=== PATIENT | male | born 1945 | race Caucasian/White ===

== ENCOUNTER 2018-07-29 08:13 | Emergency (ER) | payer MEDICARE, OTHER ==
[~2018-07-29] VITALS: Ht 185.4 cm; Wt 92.4 kg
[2018-07-29] MEDS ORDERED: FINA5TAB4 PO (08:33)
[2018-07-29] MEDS ORDERED: LOVA10TA PO (08:33)
[2018-07-29] MEDS ORDERED: TAMS-11 PO (08:33)
[2018-07-29] MEDS ORDERED: AMLO10TA8 PO (08:33)
--- NOTE | 2018-07-29 08:53 | NUR ---
ULTRASOUND DELAY-LABS/XRAY.
--- NOTE | 2018-07-29 08:57 | NUR ---
pt upright on gurney awake & comfortable, responds approp to staff, NAD, comfort measures provided, call light within reach.
[2018-07-29 09:16] LABS: BASOPHILS # (AUTO) 0.01 x10^3/uL (0-0.1); BASOPHILS % (AUTO) 0 % (0-1); EOSINOPHILS % (AUTO) 0 % (1-7); LYMPHOCYTES # (AUTO) 0.74 x10^3/uL (1-3.4); LYMPHOCYTES % (AUTO) 7 % (22-44); MD NO; MEAN CORPUSCULAR HEMOGLOBIN 31.2 pg (27.5-34.5); MEAN CORPUSCULAR HGB CONC 33.4 g/dL (33.2-36.2); MEAN CORPUSCULAR VOLUME 93.4 fL (81-97); MEAN PLATELET VOLUME 8.7 fL (7.4-10.4); MONOCYTES # (AUTO) 1.17 x10^3/uL (0.2-0.8); MONOCYTES % (AUTO) 10 % (2-9); NEUTROPHILS % (AUTO) 83 % (42-75); PLATELET COUNT 139 x10^3/uL (130-400); RED BLOOD COUNT 4.74 x10^6/uL (4.38-5.82)
[2018-07-29 09:19] LABS: ALBUMIN 3.2 g/dL (3.4-5.0); ANION GAP 7 mmol/L (5-15); CALCIUM 9.4 mg/dL (8.5-10.1); CHLORIDE 107 mmol/L (98-107); CREATININE 1.16 mg/dL (0.7-1.3)
--- NOTE | 2018-07-29 09:57 | NUR ---
pt remains upright on gurney awake & comfortable, responds approp to staff, NAD, comfort measures provided, call light within reach.
[2018-07-29] MEDS ORDERED: OMNIPAQUE 350 MG/ML, 150 ML BOTTLE ONE (10:59)
--- NOTE | 2018-07-29 11:08 | NUR ---
pt upright on gurney awake & comfortable, responds approp to staff, NAD, comfort measures provided, call light within reach.
[2018-07-29] MEDS ORDERED: LIDOCAINE-MPF 1%, 5ML ONE (11:18)
[2018-07-29] MEDS ORDERED: LIDOCAINE-MPF 1%, 5ML INFIL ONE (11:30)
[2018-07-29 12:02] VITALS: BP 124/49
--- NOTE | 2018-07-29 12:02 | NUR ---
pt remains upright on gurney awake & comfortable, responds approp to staff, NAD, comfort measures provided, call light within reach.
--- NOTE | 2018-07-29 12:53 | NUR ---
Patient given discharge instructions and Rx, they have confirmed that they understand the instructions. Patient ambulatory with steady gait.
== END 2018-07-29 12:54 | disposition home or self-care (01) ==
LOC: ED 10:12
DX: L02.416 Cutaneous abscess of left lower limb (principal); E78.00 Pure hypercholesterolemia, unspecified; I10 Essential (primary) hypertension; N40.0 Benign prostatic hyperplasia without lower urinary tract symptoms; M79.605 Pain in left leg
CPT/HCPCS: 10060; 36415; 73590; 73701; 80048; 82040; 85025; 93971; 99284; Q9967

== ENCOUNTER 2018-08-08 08:42 | Inpatient (IN) | payer MEDICARE, OTHER ==
[~2018-08-08] VITALS: Ht 185.4 cm; Wt 100.9 kg
[~2018-08-08 08:42] MED LIST: AMLO10TA8 PO; FINA5TAB4 PO; LOVA10TA PO; TAMS-11 PO
--- NOTE | 2018-08-08 09:15 | NUR ---
BUSINESS INTELLIGENCE REPORTING ANALYST: PT TO ED ROOM 16 FROM LOBBY AT THIS TIME IN NAD
--- NOTE | 2018-08-08 09:53 | NUR ---
YELLOW SLIP SENT TO PHARMACY FOR RX.
[2018-08-08] MEDS ORDERED: ERTAPENEM 1 GM in SODIUM CHLORIDE 0.9% 50 ML IV SCH (10:00)
[2018-08-08] MEDS ORDERED: SODIUM CHLORIDE FLUSH 10ML SYR IVF ONE (10:00)
--- NOTE | 2018-08-08 10:00 | NUR ---
PT REMAINS IN XR.
--- NOTE | 2018-08-08 10:14 | NUR ---
PT TO ROOM 16 FROM XR. PT STATES HE WAS SEEN HERE 10 DAYS AGO FOR CELLULITIS AND WAS GIVEN ANTX RX. PER PT AND WOUND TO LLE IS WORSENED. PT DENIES FEVERS/CHILLS. PT DENIES HX DM. PT RESTING ON GURNEY. NADN. MONITORS APPLIED. WARM BLANKET PROVIDED.
--- NOTE | 2018-08-08 10:30 | NUR ---
PER ERP DR. KAUFMAN HOLD OFF ON IV ANTX FOR NOW. BC X2 HAVE BEEN DRAWN.
--- NOTE | 2018-08-08 10:39 | NUR ---
PT RESTING ON GURNEY. NADN. HERNANDES.
[2018-08-08 10:46] LABS: BASOPHILS # (AUTO) 0.02 x10^3/uL (0-0.1); BASOPHILS % (AUTO) 0 % (0-1); EOSINOPHILS # (AUTO) 0.02 x10^3/uL (0-0.4); EOSINOPHILS % (AUTO) 0 % (1-7); LYMPHOCYTES # (AUTO) 0.76 x10^3/uL (1-3.4); LYMPHOCYTES % (AUTO) 9 % (22-44); MD NO; MEAN CORPUSCULAR HEMOGLOBIN 30.6 pg (27.5-34.5); MEAN CORPUSCULAR HGB CONC 32.6 g/dL (33.2-36.2); MEAN CORPUSCULAR VOLUME 93.9 fL (81-97); MEAN PLATELET VOLUME 7.8 fL (7.4-10.4); MONOCYTES # (AUTO) 0.58 x10^3/uL (0.2-0.8); MONOCYTES % (AUTO) 7 % (2-9); NEUTROPHILS # (AUTO) 7.22 x10^3/uL (1.8-6.8); NEUTROPHILS % (AUTO) 84 % (42-75); PLATELET COUNT 314 x10^3/uL (130-400); RED CELL DISTRIBUTION WIDTH 14.4 % (9.4-14.8)
[2018-08-08 10:50] LABS: ALBUMIN 2.7 g/dL (3.4-5.0); ANION GAP 6 mmol/L (5-15); CHLORIDE 111 mmol/L (98-107); CREATININE 1.31 mg/dL (0.7-1.3)
[2018-08-08] MEDS ORDERED: LIDOCAINE-MPF 1%, 5ML ONE (11:44)
--- NOTE | 2018-08-08 11:53 | NUR ---
PT RESTING ON GURNEY. NADN. HERNANDES.
--- NOTE | 2018-08-08 11:55 | NUR ---
PER ERP DR. MANDEEP ALMANZAR TO INITIATE IV ANTX.
--- NOTE | 2018-08-08 11:59 | NUR ---
PT RESTING ON MONIQUE. VSS. PT TAKEN TO MRI IN STABLE CONDITION.
[2018-08-08] MEDS ORDERED: LIDOCAINE-MPF 1%, 5ML INFIL ONE (12:00)
[2018-08-08] MEDS ORDERED: GADOBUTROL 10 MMOL/10 ML PFS ONE (12:44)
--- NOTE | 2018-08-08 12:46 | NUR ---
REPORT GIVEN TO MARIANNE CULVER RN. ALL QUESTIONS ANSWERED. MRI TO TAKE PT UP TO FLOOR. AT BEDSIDE NOTIFIED AND UP TO FLOOR W/ PT BELONGINGS.
[2018-08-08 15:26] VITALS: BP 148/67
[2018-08-08] MEDS ORDERED: POLYETHYLENE GLYCOL 17 GM PACKET PO PRN (15:30)
[2018-08-08] MEDS ORDERED: LABETALOL 5 MG/ML SYRINGE IVPush PRN (15:30)
[2018-08-08] MEDS ORDERED: ONDANSETRON ODT 4 MG PO PRN (15:30)
[2018-08-08] MEDS ORDERED: ONDANSETRON 2MG/ML, 2ML IVPush PRN (15:30)
[2018-08-08] MEDS ORDERED: PHARMACOKINETIC MONITORING MC PRN (15:30)
[2018-08-08] MEDS ORDERED: PHARMACOKINETIC CONSULTATION MC ONE (15:30)
[2018-08-08] MEDS ORDERED: VANCOMYCIN PER PHARMACY MC PRN (15:30)
[2018-08-08 15:35] LABS: FREE T4 (FREE THYROXINE) 1.07 ng/dL (0.76-1.46)
[2018-08-08] MEDS: D5%-0.45% NACL 1,000 ML IV SCH (16:39)
[2018-08-08] MEDS ORDERED: LABETALOL 5MG/ML, 20ML IV PRN (17:00)
[2018-08-08] MEDS ORDERED: OXYcodone 5 MG/5 ML ORAL.SOL UDC PO PRN (17:00)
[2018-08-08] MEDS ORDERED: PROCHLORPERAZINE 5 MG/ML, 2ML IV PRN (17:00)
[2018-08-08] MEDS ORDERED: METOPROLOL 1 MG/ML, 5ML IV PRN (17:00)
[2018-08-08] MEDS ORDERED: MEPERIDINE/PF 25MG/0.5ML IVPush PRN (17:00)
[2018-08-08] MEDS ORDERED: hydrALAzine 20 MG/ML, 1ML IV PRN (17:00)
[2018-08-08] MEDS ORDERED: PROMETHAZINE 25 MG/ML, 1ML IV PRN (17:00)
[2018-08-08] MEDS ORDERED: DIPHENHYDRAMINE 50 MG/ML, 1ML IVPush PRN (17:00)
[2018-08-08] MEDS ORDERED: HALOPERIDOL 5 MG/ML IV PRN (17:00)
[2018-08-08] MEDS ORDERED: HYDROmorphone 2 MG/ML, 1ML IVPush PRN (17:00)
[2018-08-08] MEDS ORDERED: MIDAZOLAM 1 MG/ML, 2ML ONE (17:15)
[2018-08-08] MEDS ORDERED: FENTANYL PF 250 MCG/5ML ONE (17:15)
[2018-08-08] MEDS ORDERED: KETOROLAC 30 MG/1 ML ONE (17:24)
[2018-08-08] MEDS ORDERED: ROCURONIUM 10MG/ML,5ML ONE (18:05)
[2018-08-08] MEDS ORDERED: NEOSTIGMINE 1 MG/ML, 10ML ONE (18:05)
[2018-08-08] MEDS ORDERED: DEXAMETHASONE 4 MG/ML, 1ML ONE (18:05)
[2018-08-08] MEDS ORDERED: GLYCOPYRROLATE 0.2MG/1ML, 5ML ONE (18:05)
[2018-08-08] MEDS ORDERED: ONDANSETRON 2MG/ML, 2ML ONE (18:05)
[2018-08-08] MEDS ORDERED: SUCCINYLCHOLINE 20 MG/ML, 10ML ONE (18:05)
[2018-08-08] MEDS ORDERED: CEFAZOLIN 1,000 MG ONE (18:05)
[2018-08-08] MEDS ORDERED: PROPOFOL 10 MG/ML, 20ML ONE (18:05)
[2018-08-08] MEDS ORDERED: FENTANYL PF 100 MCG/2ML ONE (18:20)
[2018-08-08] MEDS ORDERED: OXYcodone 5 MG/5 ML ORAL.SOL UDC ONE (18:20)
[2018-08-08] MEDS: FENTANYL PF 100 MCG/2ML IV PRN ×2 (18:24→18:33)
[2018-08-08] MEDS: AMPICILLIN/SULBACTAM 3 GM in SODIUM CHLORIDE 0.9% 100 ML IV SCH (18:54)
[2018-08-08 19:02] VITALS: BP 135/67
[2018-08-08 20:05] VITALS: BP 126/69
[2018-08-08] MEDS ORDERED: AMLODIPINE 5 MG TABLET PO SCH (21:00)
[2018-08-08] MEDS: CLINDAMYCIN PMX 900MG/50ML 50 ML IV SCH (21:03)
[2018-08-08] MEDS: LOVASTATIN 10 MG TABLET PO SCH (21:04)
[2018-08-08] MEDS: FINASTERIDE 5 MG TABLET PO SCH (21:04)
[2018-08-08] MEDS: TAMSULOSIN 0.4 MG CAP.ER.24H PO SCH (21:04)
[2018-08-08] MEDS: VANCOMYCIN 1,800 MG in SODIUM CHLORIDE 0.9% 250 ML IV SCH (22:16)
[2018-08-08] MEDS: SODIUM CHLORIDE FLUSH 10ML SYR IVF SCH (22:17)
[2018-08-08] MEDS: OXYcodone IR 5MG TABLET PO PRN (23:56)
[2018-08-09] MEDS: AMPICILLIN/SULBACTAM 3 GM in SODIUM CHLORIDE 0.9% 100 ML IV SCH ×2 (01:27→07:36)
[2018-08-09 02:30] VITALS: BP 107/59
[2018-08-09] MEDS: D5%-0.45% NACL 1,000 ML IV SCH ×4 (03:59→21:59)
[2018-08-09] MEDS: CLINDAMYCIN PMX 900MG/50ML 50 ML IV SCH (05:00)
[2018-08-09] MEDS: OXYcodone IR 5MG TABLET PO PRN (05:00)
[2018-08-09 06:00] LABS: BASOPHILS % (AUTO) 0 % (0-1); EOSINOPHILS # (AUTO) 0.06 x10^3/uL (0-0.4); EOSINOPHILS % (AUTO) 1 % (1-7); LYMPHOCYTES # (AUTO) 0.51 x10^3/uL (1-3.4); LYMPHOCYTES % (AUTO) 7 % (22-44); MD NO; MEAN CORPUSCULAR HEMOGLOBIN 31.7 pg (27.5-34.5); MEAN CORPUSCULAR HGB CONC 33.6 g/dL (33.2-36.2); MEAN CORPUSCULAR VOLUME 94.4 fL (81-97); MEAN PLATELET VOLUME 7.8 fL (7.4-10.4); MONOCYTES # (AUTO) 0.14 x10^3/uL (0.2-0.8); MONOCYTES % (AUTO) 2 % (2-9); NEUTROPHILS # (AUTO) 6.25 x10^3/uL (1.8-6.8); NEUTROPHILS % (AUTO) 90 % (42-75); PLATELET COUNT 289 x10^3/uL (130-400); RED BLOOD COUNT 3.78 x10^6/uL (4.38-5.82); RED CELL DISTRIBUTION WIDTH 14.9 % (9.4-14.8)
[2018-08-09 06:12] LABS: ALBUMIN 2.3 g/dL (3.4-5.0); ANION GAP 7 mmol/L (5-15); CALCIUM 8.7 mg/dL (8.5-10.1); CHLORIDE 112 mmol/L (98-107)
[2018-08-09 06:25] LABS: ALANINE AMINOTRANSFERASE 21 U/L (12-78); ALKALINE PHOSPHATASE 53 U/L (45-117); BILIRUBIN,TOTAL 0.2 mg/dL (0.2-1.0); CREATININE 1.53 mg/dL (0.7-1.3); TOTAL PROTEIN 6.5 g/dL (6.4-8.2)
[2018-08-09 06:43] VITALS: BP 105/57
[2018-08-09] MEDS ORDERED: LOVASTATIN 10 MG TABLET PO SCH (09:00)
[2018-08-09] MEDS: SENNA/DOCUSATE TABLET PO SCH (09:00)
[2018-08-09] MEDS ORDERED: FINASTERIDE 5 MG TABLET PO SCH (09:00)
[2018-08-09] MEDS: SODIUM CHLORIDE FLUSH 10ML SYR IVF SCH ×2 (09:48→20:20)
[2018-08-09] MEDS: TAMSULOSIN 0.4 MG CAP.ER.24H PO SCH ×2 (09:48→20:20)
[2018-08-09 10:51] LABS: HCT (SEDRATE) 35.7 % (39.2-51.8)
[2018-08-09 12:59] VITALS: BP 125/69
[2018-08-09 20:17] VITALS: BP 117/64
[2018-08-09] MEDS: FINASTERIDE 5 MG TABLET PO SCH (20:20)
[2018-08-09] MEDS: LOVASTATIN 10 MG TABLET PO SCH (20:20)
[2018-08-09] MEDS: AMLODIPINE 10 MG TAB PO SCH (20:20)
[2018-08-09] MEDS: VANCOMYCIN 1,800 MG in SODIUM CHLORIDE 0.9% 250 ML IV SCH (21:59)
[2018-08-10 01:22] VITALS: BP 128/70
[2018-08-10 06:38] VITALS: BP 125/63
[2018-08-10] MEDS: D5%-0.45% NACL 1,000 ML IV SCH (07:57)
[2018-08-10] MEDS: TAMSULOSIN 0.4 MG CAP.ER.24H PO SCH ×2 (07:57→19:47)
[2018-08-10] MEDS: SENNA/DOCUSATE TABLET PO SCH (07:58)
[2018-08-10] MEDS: SODIUM CHLORIDE FLUSH 10ML SYR IVF SCH ×2 (07:58→19:48)
[2018-08-10] MEDS ORDERED: MORPHINE SULFATE 4 MG/ML, 1ML IVPush PRN (09:00)
[2018-08-10] MEDS ORDERED: morphine SULFATE 10 MG/ML, 1ML IVPush PRN (09:30)
[2018-08-10] MEDS: SODIUM CHLORIDE 0.45% 1,000 ML IV SCH ×2 (09:37→21:31)
[2018-08-10 10:24] LABS: BASOPHILS # (AUTO) 0.02 x10^3/uL (0-0.1); BASOPHILS % (AUTO) 0 % (0-1); EOSINOPHILS # (AUTO) 0.05 x10^3/uL (0-0.4); EOSINOPHILS % (AUTO) 1 % (1-7); LYMPHOCYTES % (AUTO) 24 % (22-44); MD NO; MEAN CORPUSCULAR HEMOGLOBIN 30.9 pg (27.5-34.5); MEAN CORPUSCULAR HGB CONC 32.7 g/dL (33.2-36.2); MEAN CORPUSCULAR VOLUME 94.4 fL (81-97); MEAN PLATELET VOLUME 7.5 fL (7.4-10.4); MONOCYTES # (AUTO) 0.47 x10^3/uL (0.2-0.8); MONOCYTES % (AUTO) 8 % (2-9); NEUTROPHILS % (AUTO) 67 % (42-75); PLATELET COUNT 334 x10^3/uL (130-400); RED BLOOD COUNT 3.53 x10^6/uL (4.38-5.82); RED CELL DISTRIBUTION WIDTH 14.5 % (9.4-14.8)
[2018-08-10] MEDS ORDERED: morphine SULFATE 10 MG/ML, 1ML IVPush ONE (10:30)
[2018-08-10 10:37] LABS: ALBUMIN 2.2 g/dL (3.4-5.0); ANION GAP 6 mmol/L (5-15); CALCIUM 8.4 mg/dL (8.5-10.1); CHLORIDE 114 mmol/L (98-107); CREATININE 1.14 mg/dL (0.7-1.3)
[2018-08-10 12:12] LABS: CREATININE,URINE RANDOM 84.7 mg/dL
[2018-08-10] MEDS: CEFAZOLIN 2,000 MG in SODIUM CHLORIDE 0.9% 50 ML IV SCH ×2 (12:21→19:47)
[2018-08-10] MEDS: HEPARIN 5,000 UNITS/ML, 1ML SQ SCH ×2 (13:05→19:50)
[2018-08-10 14:00] VITALS: BP 121/57
[2018-08-10 19:33] VITALS: BP 131/65
[2018-08-10] MEDS: LOVASTATIN 10 MG TABLET PO SCH (19:48)
[2018-08-10] MEDS: AMLODIPINE 10 MG TAB PO SCH (19:48)
[2018-08-10] MEDS: FINASTERIDE 5 MG TABLET PO SCH (19:48)
[2018-08-11 00:21] VITALS: BP 132/70
[2018-08-11] MEDS: CEFAZOLIN 2,000 MG in SODIUM CHLORIDE 0.9% 50 ML IV SCH ×3 (04:10→20:37)
[2018-08-11] MEDS: HEPARIN 5,000 UNITS/ML, 1ML SQ SCH ×3 (04:57→20:36)
[2018-08-11 05:50] LABS: BASOPHILS # (AUTO) 0.04 x10^3/uL (0-0.1); BASOPHILS % (AUTO) 1 % (0-1); EOSINOPHILS # (AUTO) 0.14 x10^3/uL (0-0.4); EOSINOPHILS % (AUTO) 3 % (1-7); LYMPHOCYTES # (AUTO) 1.45 x10^3/uL (1-3.4); LYMPHOCYTES % (AUTO) 27 % (22-44); MD NO; MEAN CORPUSCULAR HEMOGLOBIN 30.7 pg (27.5-34.5); MEAN CORPUSCULAR HGB CONC 32.7 g/dL (33.2-36.2); MEAN CORPUSCULAR VOLUME 93.9 fL (81-97); MEAN PLATELET VOLUME 7.4 fL (7.4-10.4); MONOCYTES # (AUTO) 0.46 x10^3/uL (0.2-0.8); MONOCYTES % (AUTO) 9 % (2-9); NEUTROPHILS % (AUTO) 61 % (42-75); PLATELET COUNT 345 x10^3/uL (130-400); RED BLOOD COUNT 3.57 x10^6/uL (4.38-5.82); RED CELL DISTRIBUTION WIDTH 14.9 % (9.4-14.8)
[2018-08-11 06:03] LABS: ANION GAP 4 mmol/L (5-15); CALCIUM 8.4 mg/dL (8.5-10.1); CHLORIDE 115 mmol/L (98-107)
[2018-08-11 06:07] LABS: ALANINE AMINOTRANSFERASE 19 U/L (12-78); ALKALINE PHOSPHATASE 47 U/L (45-117); BILIRUBIN,TOTAL 0.4 mg/dL (0.2-1.0); CREATININE 1.09 mg/dL (0.7-1.3); TOTAL PROTEIN 5.2 g/dL (6.4-8.2)
[2018-08-11 06:52] VITALS: BP 147/72
[2018-08-11] MEDS: SODIUM CHLORIDE FLUSH 10ML SYR IVF SCH ×2 (09:00→20:43)
[2018-08-11] MEDS: SENNA/DOCUSATE TABLET PO SCH (09:00)
[2018-08-11] MEDS: TAMSULOSIN 0.4 MG CAP.ER.24H PO SCH ×2 (09:49→20:34)
[2018-08-11] MEDS: SODIUM CHLORIDE 0.45% 1,000 ML IV SCH (12:08)
[2018-08-11 14:03] VITALS: BP 138/64
[2018-08-11 18:55] VITALS: BP 142/65
[2018-08-11] MEDS: AMLODIPINE 10 MG TAB PO SCH (20:34)
[2018-08-11] MEDS: LOVASTATIN 10 MG TABLET PO SCH (20:34)
[2018-08-11] MEDS: FINASTERIDE 5 MG TABLET PO SCH (20:35)
[2018-08-12 01:12] VITALS: BP 150/73
[2018-08-12] MEDS: SODIUM CHLORIDE 0.45% 1,000 ML IV SCH ×2 (01:15→14:50)
[2018-08-12] MEDS: CEFAZOLIN 2,000 MG in SODIUM CHLORIDE 0.9% 50 ML IV SCH ×2 (05:11→12:30)
[2018-08-12] MEDS: HEPARIN 5,000 UNITS/ML, 1ML SQ SCH ×2 (05:11→12:30)
[2018-08-12 05:49] LABS: BASOPHILS # (AUTO) 0.05 x10^3/uL (0-0.1); BASOPHILS % (AUTO) 1 % (0-1); EOSINOPHILS # (AUTO) 0.08 x10^3/uL (0-0.4); EOSINOPHILS % (AUTO) 2 % (1-7); LYMPHOCYTES # (AUTO) 1.35 x10^3/uL (1-3.4); LYMPHOCYTES % (AUTO) 29 % (22-44); MD NO; MEAN CORPUSCULAR HEMOGLOBIN 31.6 pg (27.5-34.5); MEAN PLATELET VOLUME 7.3 fL (7.4-10.4); MONOCYTES # (AUTO) 0.41 x10^3/uL (0.2-0.8); MONOCYTES % (AUTO) 9 % (2-9); NEUTROPHILS # (AUTO) 2.83 x10^3/uL (1.8-6.8); NEUTROPHILS % (AUTO) 60 % (42-75); PLATELET COUNT 354 x10^3/uL (130-400); RED BLOOD COUNT 3.65 x10^6/uL (4.38-5.82); RED CELL DISTRIBUTION WIDTH 14.6 % (9.4-14.8)
[2018-08-12 05:59] LABS: CHLORIDE 113 mmol/L (98-107)
[2018-08-12 06:13] LABS: ALANINE AMINOTRANSFERASE 15 U/L (12-78); ALBUMIN 2.3 g/dL (3.4-5.0); ALKALINE PHOSPHATASE 53 U/L (45-117); ANION GAP 5 mmol/L (5-15); BILIRUBIN,TOTAL 0.4 mg/dL (0.2-1.0); CALCIUM 8.8 mg/dL (8.5-10.1); CREATININE 0.99 mg/dL (0.7-1.3); TOTAL PROTEIN 5.8 g/dL (6.4-8.2)
[2018-08-12 07:37] LABS: HCT (SEDRATE) 33.9 % (39.2-51.8)
[2018-08-12] MEDS: SODIUM CHLORIDE FLUSH 10ML SYR IVF SCH (09:00)
[2018-08-12] MEDS: SENNA/DOCUSATE TABLET PO SCH (09:00)
[2018-08-12 09:06] VITALS: BP 151/69
[2018-08-12] MEDS: TAMSULOSIN 0.4 MG CAP.ER.24H PO SCH (09:14)
[2018-08-12 12:56] VITALS: BP 147/68
[2018-08-12] MEDS ORDERED: ERTAPENEM 1 GM in SODIUM CHLORIDE 0.9% 50 ML IV ONE (13:00)
== END 2018-08-12 17:15 | disposition home or self-care (01) | DRG 579 ==
LOC: ED 09:58 → EDIP 11:55 → 3NE 13:39 → DCLOUNGE 08-12 16:53
PROVIDERS: ADMIT Internal Medicine; ATTEND Internal Medicine
PROC: 02HV33Z Insertion of Infusion Device into Superior Vena Cava, Percutaneous Approach (ICD-10-PCS; 2018-08-08)
PROC: B5181ZA Fluoroscopy of Superior Vena Cava using Low Osmolar Contrast, Guidance (ICD-10-PCS; 2018-08-08)
PROC: B548ZZA Ultrasonography of Superior Vena Cava, Guidance (ICD-10-PCS; 2018-08-08)
PROC: 0Y9J3ZZ Drainage of Left Lower Leg, Percutaneous Approach (ICD-10-PCS; 2018-08-08)
PROC: 0KDT0ZZ Extraction of Left Lower Leg Muscle, Open Approach (ICD-10-PCS; principal; 2018-08-08 17:00)
DX: L02.416 Cutaneous abscess of left lower limb (principal); N17.0 Acute kidney failure with tubular necrosis; L03.116 Cellulitis of left lower limb; N18.3 Chronic kidney disease, stage 3 (moderate); I12.9 Hypertensive chronic kidney disease with stage 1 through stage 4 chronic kidney disease, or unspecified chronic kidney disease; E78.00 Pure hypercholesterolemia, unspecified; N40.0 Benign prostatic hyperplasia without lower urinary tract symptoms; E78.5 Hyperlipidemia, unspecified; L03.115 Cellulitis of right lower limb; B95.61 Methicillin susceptible Staphylococcus aureus infection as the cause of diseases classified elsewhere; L02.415 Cutaneous abscess of right lower limb; Z85.46 Personal history of malignant neoplasm of prostate; Z82.49 Family history of ischemic heart disease and other diseases of the circulatory system; Z92.3 Personal history of irradiation; Z79.899 Other long term (current) drug therapy
CPT/HCPCS: 36415; 36573; 76770; 80048; 80053; 80202; 82040; 82570; 83735; 84100; 84300; 84439; 84443; 85025; 85651; 86140; 87040; 87070; 87075; 87077; 87147; 87186; 87205; 99285; A9585; G0378; J0295; J0690; J1100; J1335; J1644; J1885; J2250; J2405; J2704; J2710; J3010; J3370; C1751; J0330; J2270; J7050

== ENCOUNTER → 2018-08-14 | Outpatient (CLI) | payer MEDICARE, OTHER | END | disposition home or self-care (01) | LOC: WOUND 08:40 | PROVIDERS: ATTEND Internal Medicine | DX: T81.89XD Other complications of procedures, not elsewhere classified, subsequent encounter (principal); L03.116 Cellulitis of left lower limb; M65.062 Abscess of tendon sheath, left lower leg; I12.9 Hypertensive chronic kidney disease with stage 1 through stage 4 chronic kidney disease, or unspecified chronic kidney disease; N18.3 Chronic kidney disease, stage 3 (moderate); E78.5 Hyperlipidemia, unspecified; E78.00 Pure hypercholesterolemia, unspecified; Z85.46 Personal history of malignant neoplasm of prostate; Z79.899 Other long term (current) drug therapy; Y83.8 Other surgical procedures as the cause of abnormal reaction of the patient, or of later complication, without mention of misadventure at the time of the procedure | CPT/HCPCS: 97597; G0463 ==

== ENCOUNTER → 2018-08-16 | Outpatient (CLI) | payer MEDICARE, OTHER | END | disposition home or self-care (01) | LOC: WOUND 13:27 | PROVIDERS: ATTEND Family Medicine | DX: T81.89XD Other complications of procedures, not elsewhere classified, subsequent encounter (principal); L03.116 Cellulitis of left lower limb; M65.062 Abscess of tendon sheath, left lower leg; I12.9 Hypertensive chronic kidney disease with stage 1 through stage 4 chronic kidney disease, or unspecified chronic kidney disease; N18.3 Chronic kidney disease, stage 3 (moderate); E78.5 Hyperlipidemia, unspecified; E78.00 Pure hypercholesterolemia, unspecified; Z79.899 Other long term (current) drug therapy; Z85.46 Personal history of malignant neoplasm of prostate; Y83.8 Other surgical procedures as the cause of abnormal reaction of the patient, or of later complication, without mention of misadventure at the time of the procedure | CPT/HCPCS: 97605 ==

== ENCOUNTER → 2018-08-19 | Outpatient (CLI) | payer MEDICARE, OTHER | END | disposition home or self-care (01) | LOC: WOUND 08:02 | PROVIDERS: ATTEND Internal Medicine | DX: T81.89XD Other complications of procedures, not elsewhere classified, subsequent encounter (principal); L03.116 Cellulitis of left lower limb; I13.10 Hypertensive heart and chronic kidney disease without heart failure, with stage 1 through stage 4 chronic kidney disease, or unspecified chronic kidney disease; N18.3 Chronic kidney disease, stage 3 (moderate); E78.5 Hyperlipidemia, unspecified; M65.062 Abscess of tendon sheath, left lower leg; E78.00 Pure hypercholesterolemia, unspecified; Z79.899 Other long term (current) drug therapy; Z85.46 Personal history of malignant neoplasm of prostate; Y83.8 Other surgical procedures as the cause of abnormal reaction of the patient, or of later complication, without mention of misadventure at the time of the procedure | CPT/HCPCS: 97605 ==

== ENCOUNTER → 2018-08-21 | Outpatient (CLI) | payer MEDICARE, OTHER | END | disposition home or self-care (01) | LOC: WOUND 09:28 | PROVIDERS: ATTEND Internal Medicine | DX: T81.89XD Other complications of procedures, not elsewhere classified, subsequent encounter (principal); L03.116 Cellulitis of left lower limb; E78.5 Hyperlipidemia, unspecified; M65.062 Abscess of tendon sheath, left lower leg; I12.9 Hypertensive chronic kidney disease with stage 1 through stage 4 chronic kidney disease, or unspecified chronic kidney disease; N18.3 Chronic kidney disease, stage 3 (moderate); E78.00 Pure hypercholesterolemia, unspecified; Z79.899 Other long term (current) drug therapy; Z85.46 Personal history of malignant neoplasm of prostate; Y83.8 Other surgical procedures as the cause of abnormal reaction of the patient, or of later complication, without mention of misadventure at the time of the procedure | CPT/HCPCS: 97597 ==

== ENCOUNTER → 2018-08-23 | Outpatient (CLI) | payer MEDICARE, OTHER | END | disposition home or self-care (01) | LOC: WOUND 08:43 | PROVIDERS: ATTEND Family Medicine | DX: T81.89XD Other complications of procedures, not elsewhere classified, subsequent encounter (principal); L03.116 Cellulitis of left lower limb; I10 Essential (primary) hypertension; E78.5 Hyperlipidemia, unspecified; M65.062 Abscess of tendon sheath, left lower leg; Z85.46 Personal history of malignant neoplasm of prostate; Y83.8 Other surgical procedures as the cause of abnormal reaction of the patient, or of later complication, without mention of misadventure at the time of the procedure | CPT/HCPCS: 97605 ==

== ENCOUNTER → 2018-08-26 | Outpatient (CLI) | payer MEDICARE, OTHER | END | disposition home or self-care (01) | LOC: WOUND 08:49 | PROVIDERS: ATTEND Internal Medicine | DX: L03.116 Cellulitis of left lower limb (principal); I12.9 Hypertensive chronic kidney disease with stage 1 through stage 4 chronic kidney disease, or unspecified chronic kidney disease; N18.4 Chronic kidney disease, stage 4 (severe); E78.5 Hyperlipidemia, unspecified; M65.062 Abscess of tendon sheath, left lower leg; N18.3 Chronic kidney disease, stage 3 (moderate); E78.00 Pure hypercholesterolemia, unspecified; Z79.899 Other long term (current) drug therapy; Z85.46 Personal history of malignant neoplasm of prostate | CPT/HCPCS: G0463 ==

== ENCOUNTER → 2018-08-28 | Outpatient (CLI) | payer MEDICARE, OTHER | END | disposition home or self-care (01) | LOC: WOUND 08:00 | PROVIDERS: ATTEND Internal Medicine | DX: T81.89XD Other complications of procedures, not elsewhere classified, subsequent encounter (principal); L03.116 Cellulitis of left lower limb; M65.062 Abscess of tendon sheath, left lower leg; I12.9 Hypertensive chronic kidney disease with stage 1 through stage 4 chronic kidney disease, or unspecified chronic kidney disease; N18.4 Chronic kidney disease, stage 4 (severe); E78.5 Hyperlipidemia, unspecified; E78.00 Pure hypercholesterolemia, unspecified; Z79.899 Other long term (current) drug therapy; Z85.46 Personal history of malignant neoplasm of prostate; Y83.8 Other surgical procedures as the cause of abnormal reaction of the patient, or of later complication, without mention of misadventure at the time of the procedure | CPT/HCPCS: 97597 ==

== ENCOUNTER → 2018-09-04 | Outpatient (CLI) | payer MEDICARE, OTHER | END | disposition home or self-care (01) | LOC: WOUND 13:53 | PROVIDERS: ATTEND Internal Medicine | DX: T81.89XD Other complications of procedures, not elsewhere classified, subsequent encounter (principal); L03.116 Cellulitis of left lower limb; M65.062 Abscess of tendon sheath, left lower leg; I12.9 Hypertensive chronic kidney disease with stage 1 through stage 4 chronic kidney disease, or unspecified chronic kidney disease; N18.4 Chronic kidney disease, stage 4 (severe); E78.5 Hyperlipidemia, unspecified; E78.00 Pure hypercholesterolemia, unspecified; Z79.899 Other long term (current) drug therapy; Z85.46 Personal history of malignant neoplasm of prostate; Y83.8 Other surgical procedures as the cause of abnormal reaction of the patient, or of later complication, without mention of misadventure at the time of the procedure | CPT/HCPCS: 97597 ==

== ENCOUNTER → 2018-09-18 | Outpatient (CLI) | payer MEDICARE, OTHER | END | disposition home or self-care (01) | LOC: WOUND 10:53 | PROVIDERS: ATTEND Internal Medicine Cardiovascular Disease | DX: L03.116 Cellulitis of left lower limb (principal); M65.062 Abscess of tendon sheath, left lower leg; I12.9 Hypertensive chronic kidney disease with stage 1 through stage 4 chronic kidney disease, or unspecified chronic kidney disease; N18.4 Chronic kidney disease, stage 4 (severe); E78.5 Hyperlipidemia, unspecified; E78.00 Pure hypercholesterolemia, unspecified; Z79.899 Other long term (current) drug therapy; Z85.46 Personal history of malignant neoplasm of prostate | CPT/HCPCS: 99212 ==